=== PATIENT | female | born 1945 | race Caucasian/White ===

== ENCOUNTER → 2017-09-02 | Outpatient (CLI) | payer OTHER ==
[~2017-09-02] VITALS: Ht 154.9 cm; Wt 64.4 kg
[~2017-09-02] MED LIST: ADULT LOW DOSE81 M1 PO; AMARYL4 MG PO; GLUCOPHAGE1000 MG PO; LEVEMIR100 UNIT/2 SC; LIPITOR10 MG PO; LOPRESSOR25 MG PO; PRINZIDE 20-121 EACH PO; PROTONIX40 MG PO
[2017-09-02 11:09] LABS: CHLORIDE 106 MEQ/L (99-109); POTASSIUM 4.5 MEQ/L (3.7-5.4); SODIUM 141 MEQ/L (136-147)
[2017-09-02 11:15] LABS: CREATININE 1.3 MG/DL (0.6-1.3); GFR ESTIMATE (CALCULATED) 43 mL/min/; GLUCOSE 68 mg/dL (70-99); UREA NITROGEN (BUN) 28 mg/dL (9-23)
== END | disposition home or self-care (01) ==
LOC: AMB 10:15
PROVIDERS: Internal Medicine Gastroenterology
PROC: 0DBH8ZX Excision of Cecum, Via Natural or Artificial Opening Endoscopic, Diagnostic (ICD-10-PCS; principal; 2017-09-02)
DX: Z12.11 Encounter for screening for malignant neoplasm of colon (principal); Z86.010 Personal history of colon polyps; D12.0 Benign neoplasm of cecum; E11.65 Type 2 diabetes mellitus with hyperglycemia; Z79.84 Long term (current) use of oral hypoglycemic drugs; Z79.82 Long term (current) use of aspirin; F17.210 Nicotine dependence, cigarettes, uncomplicated
CPT/HCPCS: 80048; 82948; 88305; 93005; J2250; J2405

== ENCOUNTER → 2017-10-01 | Outpatient (CLI) | payer MEDICARE, OTHER | END | disposition home or self-care (01) | LOC: CDC 10:25 | DX: Z01.810 Encounter for preprocedural cardiovascular examination (principal); K51.40 Inflammatory polyps of colon without complications | CPT/HCPCS: 93000 ==

== ENCOUNTER 2017-10-25 21:35 | Inpatient (IN) | payer OTHER ==
[~2017-10-25] VITALS: Ht 154.9 cm; Wt 60.4 kg
[~2017-10-25 21:35] MED LIST changes: +LEVEMIR FL100 UNIT/1 SC; -LEVEMIR100 UNIT/2 SC; -LOPRESSOR25 MG PO; +LOPRESSOR50 MG PO; +LUMIGAN 0.50 DROP/22 BOTH EYES
[2017-10-26 05:54] VITALS: BP 193/75
[2017-10-26 06:13] VITALS: BP 193/75
[2017-10-26 16:26] VITALS: BP 163/70
[2017-10-26 18:46] VITALS: BP 180/71
[2017-10-26 22:41] VITALS: BP 163/71
[2017-10-27 03:57] VITALS: BP 172/79
[2017-10-27 07:36] VITALS: BP 128/60
[2017-10-27 09:26] LABS: BASOPHIL (%) 0.6 % (0-1); BASOPHIL COUNT 0.1 K/uL (0-0.1); EOSINOPHIL (%) 0.6 % (0-5); EOSINOPHIL COUNT 0.1 K/uL (0-0.3); HEMATOCRIT 30.6 % (36.0-46.0); IMMATURE GRANULOCYTE (%) 0.3 % (0.0-0.7); LYMPHOCYTE (%) 19.6 % (15-42); MCHC 32.7 G/DL (30.0-36.0); MCV 94.7 FL (83-99); MONOCYTE COUNT 0.9 K/uL (0-0.8); NEUTROPHIL (%) 69.9 % (45-76); NEUTROPHIL COUNT 7.2 K/uL (1.8-6.4); PLATELET COUNT 216 K/uL (156-360); RBC DIS.WIDTH-CV 13.6 % (11.8-14.6); RBC DIS.WIDTH-SD 46.5 % (39-53); WHITE BLOOD COUNT 10.3 K/uL (4.1-10.2)
[2017-10-27 09:32] LABS: RED BLOOD COUNT 3.23 M/uL (3.80-5.20)
[2017-10-27 09:49] LABS: CHLORIDE 109 MEQ/L (99-109); CREATININE 1.3 MG/DL (0.6-1.3); GFR ESTIMATE (CALCULATED) 43 mL/min/; GLUCOSE 81 mg/dL (70-99); POTASSIUM 3.9 MEQ/L (3.7-5.4); SODIUM 142 MEQ/L (136-147); UREA NITROGEN (BUN) 19 mg/dL (9-23)
[2017-10-27 12:03] VITALS: BP 129/59
[2017-10-27 15:56] VITALS: BP 145/67
[2017-10-28] VITALS (9 sets, daily range): BP systolic 120–182; BP diastolic 58–73
[2017-10-28 06:03] LABS: BASOPHIL (%) 0.5 % (0-1); BASOPHIL COUNT 0.1 K/uL (0-0.1); EOSINOPHIL (%) 0.9 % (0-5); EOSINOPHIL COUNT 0.1 K/uL (0-0.3); HEMATOCRIT 31.1 % (36.0-46.0); HEMOGLOBIN 9.9 G/DL (11.9-15.5); IMMATURE GRANULOCYTE (%) 0.6 % (0.0-0.7); LYMPHOCYTE (%) 12.4 % (15-42); LYMPHOCYTE COUNT 1.2 K/uL (1.0-2.8); MCHC 31.8 G/DL (30.0-36.0); MCV 94.2 FL (83-99); MONOCYTE (%) 8.7 % (3-12); MONOCYTE COUNT 0.9 K/uL (0-0.8); NEUTROPHIL (%) 76.9 % (45-76); NEUTROPHIL COUNT 7.6 K/uL (1.8-6.4); PLATELET COUNT 192 K/uL (156-360); RBC DIS.WIDTH-CV 13.4 % (11.8-14.6); RBC DIS.WIDTH-SD 46.2 % (39-53); WHITE BLOOD COUNT 9.9 K/uL (4.1-10.2)
[2017-10-28 06:27] LABS: CHLORIDE 106 MEQ/L (99-109); CREATININE 1.2 MG/DL (0.6-1.3); GFR ESTIMATE (CALCULATED) 47 mL/min/; POTASSIUM 4.4 MEQ/L (3.7-5.4); SODIUM 140 MEQ/L (136-147); UREA NITROGEN (BUN) 14 mg/dL (9-23)
[2017-10-28 06:28] LABS: GLUCOSE 244 mg/dL (70-99)
[2017-10-28 09:46] LABS: MAGNESIUM 1.4 mg/dl (1.3-2.7); PHOSPHORUS 3.1 mg/dL (2.5-4.9)
[2017-10-28 11:32] LABS: TROP-I INTERPRETATION POSITIVE; TROPONIN-I 2.24 ng/mL (0.0-0.30)
[2017-10-28 15:34] LABS: TROP-I INTERPRETATION POSITIVE; TROPONIN-I 1.77 ng/mL (0.0-0.30)
[2017-10-28 22:30] LABS: TROP-I INTERPRETATION POSITIVE; TROPONIN-I 1.27 ng/mL (0.0-0.30)
[2017-10-29 03:56] VITALS: BP 156/65
[2017-10-29 06:35] LABS: BASOPHIL (%) 0.8 % (0-1); BASOPHIL COUNT 0.1 K/uL (0-0.1); EOSINOPHIL COUNT 0.5 K/uL (0-0.3); HEMATOCRIT 30.8 % (36.0-46.0); IMMATURE GRANULOCYTE (%) 0.6 % (0.0-0.7); LYMPHOCYTE COUNT 1.7 K/uL (1.0-2.8); MCH 30.9 PG (29.0-34.0); MCHC 32.5 G/DL (30.0-36.0); MCV 95.1 FL (83-99); MONOCYTE (%) 7.9 % (3-12); MONOCYTE COUNT 0.6 K/uL (0-0.8); NEUTROPHIL (%) 62.7 % (45-76); NEUTROPHIL COUNT 4.9 K/uL (1.8-6.4); PLATELET COUNT 186 K/uL (156-360); RBC DIS.WIDTH-CV 13.4 % (11.8-14.6); RBC DIS.WIDTH-SD 46.7 % (39-53); RED BLOOD COUNT 3.24 M/uL (3.80-5.20); WHITE BLOOD COUNT 7.8 K/uL (4.1-10.2)
[2017-10-29 06:50] VITALS: BP 164/71
[2017-10-29 07:03] LABS: CHLORIDE 105 MEQ/L (99-109); CREATININE 1.1 MG/DL (0.6-1.3); GFR ESTIMATE (CALCULATED) 52 mL/min/; GLUCOSE 181 mg/dL (70-99); SODIUM 139 MEQ/L (136-147); UREA NITROGEN (BUN) 11 mg/dL (9-23)
[2017-10-29 11:18] VITALS: BP 117/70
[2017-10-29 16:25] VITALS: BP 188/79
[2017-10-29 19:12] VITALS: BP 141/67
[2017-10-29 22:32] VITALS: BP 161/71
[2017-10-30] VITALS (7 sets, daily range): BP systolic 126–192; BP diastolic 64–79
[2017-10-30 07:18] LABS: BASOPHIL (%) 0.8 % (0-1); BASOPHIL COUNT 0.1 K/uL (0-0.1); EOSINOPHIL (%) 5.5 % (0-5); EOSINOPHIL COUNT 0.5 K/uL (0-0.3); HEMATOCRIT 31.4 % (36.0-46.0); HEMOGLOBIN 10.3 G/DL (11.9-15.5); IMMATURE GRANULOCYTE (%) 0.8 % (0.0-0.7); LYMPHOCYTE COUNT 1.8 K/uL (1.0-2.8); MCH 30.7 PG (29.0-34.0); MCHC 32.8 G/DL (30.0-36.0); MCV 93.5 FL (83-99); MONOCYTE (%) 8.5 % (3-12); MONOCYTE COUNT 0.8 K/uL (0-0.8); NEUTROPHIL (%) 64.4 % (45-76); NEUTROPHIL COUNT 5.9 K/uL (1.8-6.4); PLATELET COUNT 212 K/uL (156-360); RBC DIS.WIDTH-CV 13.1 % (11.8-14.6); RBC DIS.WIDTH-SD 45.1 % (39-53); RED BLOOD COUNT 3.36 M/uL (3.80-5.20); WHITE BLOOD COUNT 9.2 K/uL (4.1-10.2)
[2017-10-30 07:35] LABS: CHLORIDE 106 MEQ/L (99-109); CREATININE 1.1 MG/DL (0.6-1.3); GFR ESTIMATE (CALCULATED) 52 mL/min/; GLUCOSE 146 mg/dL (70-99); POTASSIUM 4.5 MEQ/L (3.7-5.4); SODIUM 142 MEQ/L (136-147); UREA NITROGEN (BUN) 10 mg/dL (9-23)
[2017-10-31] VITALS (9 sets, daily range): BP systolic 164–203; BP diastolic 68–87
[2017-11-01 00:23] VITALS: BP 174/74
[2017-11-01 04:00] VITALS: BP 162/72
[2017-11-01 06:49] LABS: HEMATOCRIT 29.8 % (36.0-46.0); HEMOGLOBIN 9.7 G/DL (11.9-15.5); MCH 30.3 PG (29.0-34.0); MCHC 32.6 G/DL (30.0-36.0); MCV 93.1 FL (83-99); PLATELET COUNT 236 K/uL (156-360); RBC DIS.WIDTH-CV 13.2 % (11.8-14.6); RBC DIS.WIDTH-SD 44.9 % (39-53); WHITE BLOOD COUNT 10.4 K/uL (4.1-10.2)
[2017-11-01 07:05] VITALS: BP 136/74
[2017-11-01 07:14] LABS: CHLORIDE 107 MEQ/L (99-109); CREATININE 1.2 MG/DL (0.6-1.3); GFR ESTIMATE (CALCULATED) 47 mL/min/; GLUCOSE 120 mg/dL (70-99); POTASSIUM 4.4 MEQ/L (3.7-5.4); SODIUM 142 MEQ/L (136-147)
[2017-11-01 07:20] LABS: UREA NITROGEN (BUN) 24 mg/dL (9-23)
[2017-11-01 11:16] VITALS: BP 124/59
[2017-11-01 20:05] VITALS: BP 132/60
[2017-11-01 23:00] VITALS: BP 139/66
[2017-11-02 04:40] VITALS: BP 156/65
[2017-11-02 07:19] VITALS: BP 159/72
[2017-11-02 09:45] LABS: BASOPHIL (%) 0.8 % (0-1); BASOPHIL COUNT 0.1 K/uL (0-0.1); EOSINOPHIL COUNT 0.2 K/uL (0-0.3); HEMATOCRIT 25.3 % (36.0-46.0); HEMOGLOBIN 8.2 G/DL (11.9-15.5); IMMATURE GRANULOCYTE (%) 1.1 % (0.0-0.7); LYMPHOCYTE COUNT 1.2 K/uL (1.0-2.8); MCH 30.6 PG (29.0-34.0); MCHC 32.4 G/DL (30.0-36.0); MCV 94.4 FL (83-99); MONOCYTE (%) 8.1 % (3-12); MONOCYTE COUNT 0.8 K/uL (0-0.8); NEUTROPHIL COUNT 7.6 K/uL (1.8-6.4); NRBC (%) 1.1 /100 WBC (0-0); PLATELET COUNT 223 K/uL (156-360); RBC DIS.WIDTH-CV 13.6 % (11.8-14.6); RED BLOOD COUNT 2.68 M/uL (3.80-5.20); WHITE BLOOD COUNT 10.1 K/uL (4.1-10.2)
[2017-11-02 10:20] LABS: CHLORIDE 108 MEQ/L (99-109); CREATININE 1.3 MG/DL (0.6-1.3); GFR ESTIMATE (CALCULATED) 43 mL/min/; POTASSIUM 4.8 MEQ/L (3.7-5.4); SODIUM 140 MEQ/L (136-147); UREA NITROGEN (BUN) 29 mg/dL (9-23)
[2017-11-02 10:21] LABS: GLUCOSE 339 mg/dL (70-99)
[2017-11-02 12:17] VITALS: BP 145/68
[2017-11-02 14:08] LABS: HEMOGLOBIN 7.8 G/DL (11.9-15.5); MCV 94.1 FL (83-99)
[2017-11-02 15:50] VITALS: BP 130/65
[2017-11-02 19:38] VITALS: BP 144/70
[2017-11-02 21:05] LABS: HEMATOCRIT 23.2 % (36.0-46.0); HEMOGLOBIN 7.5 G/DL (11.9-15.5); MCV 94.7 FL (83-99)
[2017-11-02 23:11] VITALS: BP 147/63
[2017-11-03] VITALS (9 sets, daily range): BP systolic 149–160; BP diastolic 63–71
[2017-11-03 02:13] LABS: HEMATOCRIT 23.1 % (36.0-46.0); HEMOGLOBIN 7.7 G/DL (11.9-15.5); MCV 93.5 FL (83-99)
[2017-11-03 02:20] LABS: CHLORIDE 109 mEq/L (99-109); POTASSIUM 4.5 mEq/L (3.7-5.4); SODIUM 140 mEq/L (136-147)
[2017-11-03 02:26] LABS: CREATININE 1.7 mg/dL (0.6-1.3); GFR ESTIMATE (CALCULATED) 32 mL/min/; GLUCOSE 112 mg/dL (70-99)
[2017-11-03 02:27] LABS: UREA NITROGEN (BUN) 39 mg/dL (9-23)
[2017-11-03 07:46] LABS: BASOPHIL (%) 0.8 % (0-1); BASOPHIL COUNT 0.1 K/uL (0-0.1); EOSINOPHIL (%) 4.1 % (0-5); EOSINOPHIL COUNT 0.5 K/uL (0-0.3); HEMOGLOBIN 7.7 G/DL (11.9-15.5); IMMATURE GRANULOCYTE (%) 1.5 % (0.0-0.7); LYMPHOCYTE (%) 18.7 % (15-42); LYMPHOCYTE COUNT 2.1 K/uL (1.0-2.8); MCH 30.2 PG (29.0-34.0); MCHC 32.1 G/DL (30.0-36.0); MCV 94.1 FL (83-99); MONOCYTE (%) 9.8 % (3-12); MONOCYTE COUNT 1.1 K/uL (0-0.8); NEUTROPHIL (%) 65.1 % (45-76); NEUTROPHIL COUNT 7.2 K/uL (1.8-6.4); PLATELET COUNT 240 K/uL (156-360); RBC DIS.WIDTH-CV 13.7 % (11.8-14.6); RBC DIS.WIDTH-SD 46.5 % (39-53); RED BLOOD COUNT 2.55 M/uL (3.80-5.20)
[2017-11-03 17:47] LABS: BASOPHIL (%) 1.1 % (0-1); BASOPHIL COUNT 0.1 K/uL (0-0.1); EOSINOPHIL (%) 3.2 % (0-5); EOSINOPHIL COUNT 0.4 K/uL (0-0.3); HEMATOCRIT 29.3 % (36.0-46.0); IMMATURE GRANULOCYTE (%) 1.4 % (0.0-0.7); LYMPHOCYTE (%) 20.1 % (15-42); LYMPHOCYTE COUNT 2.5 K/uL (1.0-2.8); MCH 30.7 PG (29.0-34.0); MCHC 33.4 G/DL (30.0-36.0); MCV 91.8 FL (83-99); MONOCYTE (%) 10.9 % (3-12); MONOCYTE COUNT 1.4 K/uL (0-0.8); NEUTROPHIL (%) 63.3 % (45-76); NEUTROPHIL COUNT 7.8 K/uL (1.8-6.4); PLATELET COUNT 244 K/uL (156-360); RBC DIS.WIDTH-CV 14.8 % (11.8-14.6); RBC DIS.WIDTH-SD 49.3 % (39-53); WHITE BLOOD COUNT 12.4 K/uL (4.1-10.2)
[2017-11-03 17:57] LABS: HEMOGLOBIN 9.8 G/DL (11.9-15.5); RED BLOOD COUNT 3.19 M/uL (3.80-5.20)
[2017-11-04 03:56] VITALS: BP 162/70
[2017-11-04 05:11] LABS: BASOPHIL (%) 0.8 % (0-1); BASOPHIL COUNT 0.1 K/uL (0-0.1); EOSINOPHIL (%) 4.2 % (0-5); EOSINOPHIL COUNT 0.5 K/uL (0-0.3); HEMATOCRIT 28.5 % (36.0-46.0); HEMOGLOBIN 9.5 G/DL (11.9-15.5); IMMATURE GRANULOCYTE (%) 1.7 % (0.0-0.7); LYMPHOCYTE (%) 16.6 % (15-42); MCH 30.4 PG (29.0-34.0); MCHC 33.3 G/DL (30.0-36.0); MCV 91.1 FL (83-99); MONOCYTE (%) 10.1 % (3-12); MONOCYTE COUNT 1.2 K/uL (0-0.8); NEUTROPHIL (%) 66.6 % (45-76); PLATELET COUNT 226 K/uL (156-360); RBC DIS.WIDTH-CV 15.3 % (11.8-14.6); RBC DIS.WIDTH-SD 49.9 % (39-53); RED BLOOD COUNT 3.13 M/uL (3.80-5.20); WHITE BLOOD COUNT 12.1 K/uL (4.1-10.2)
[2017-11-04 05:16] LABS: CHLORIDE 110 mEq/L (99-109); POTASSIUM 4.3 mEq/L (3.7-5.4); SODIUM 144 mEq/L (136-147)
[2017-11-04 05:21] LABS: GLUCOSE 58 mg/dL (70-99)
[2017-11-04 05:22] LABS: CREATININE 1.4 mg/dL (0.6-1.3); GFR ESTIMATE (CALCULATED) 40 mL/min/
[2017-11-04 05:23] LABS: UREA NITROGEN (BUN) 37 mg/dL (9-23)
[2017-11-04 07:06] VITALS: BP 153/68
[2017-11-04] MEDS ORDERED: CLOPIDOGREL75 MG PO (10:32)
[2017-11-04 11:12] VITALS: BP 153/67
[2017-11-04 14:14] VITALS: BP 136/65
[2017-11-04 20:00] VITALS: BP 137/71
[2017-11-04 23:55] VITALS: BP 153/67
[2017-11-05 04:00] VITALS: BP 150/67
[2017-11-05 06:34] LABS: BASOPHIL COUNT 0.1 K/uL (0-0.1); EOSINOPHIL (%) 5.2 % (0-5); EOSINOPHIL COUNT 0.5 K/uL (0-0.3); HEMATOCRIT 27.3 % (36.0-46.0); IMMATURE GRANULOCYTE (%) 1.5 % (0.0-0.7); LYMPHOCYTE (%) 21.2 % (15-42); LYMPHOCYTE COUNT 2.2 K/uL (1.0-2.8); MCH 30.2 PG (29.0-34.0); MCV 91.6 FL (83-99); MONOCYTE (%) 11.6 % (3-12); MONOCYTE COUNT 1.2 K/uL (0-0.8); NEUTROPHIL (%) 59.5 % (45-76); NEUTROPHIL COUNT 6.1 K/uL (1.8-6.4); PLATELET COUNT 239 K/uL (156-360); RBC DIS.WIDTH-CV 15.4 % (11.8-14.6); RBC DIS.WIDTH-SD 50.2 % (39-53); RED BLOOD COUNT 2.98 M/uL (3.80-5.20); WHITE BLOOD COUNT 10.3 K/uL (4.1-10.2)
[2017-11-05 07:29] LABS: CHLORIDE 112 MEQ/L (99-109); CREATININE 1.3 MG/DL (0.6-1.3); GFR ESTIMATE (CALCULATED) 43 mL/min/; POTASSIUM 4.4 MEQ/L (3.7-5.4); SODIUM 144 MEQ/L (136-147); UREA NITROGEN (BUN) 34 mg/dL (9-23)
[2017-11-05 07:32] VITALS: BP 143/64
[2017-11-05 07:41] LABS: GLUCOSE 52 mg/dL (70-99)
[2017-11-05] MEDS ORDERED: ASPIR-LOW81 MG PO (09:54)
[2017-11-05 11:03] VITALS: BP 136/65
== END 2017-11-05 13:01 | disposition home or self-care (01) | DRG 329 ==
LOC: 2SOUTH → ENRESERV 21:35 → 2SOUTH 10-26 05:35 → 5EAST 10-26 05:35 → 2SOUTH 10-26 09:41 → ENRESERV 10-26 12:37 → 5EAST 10-26 14:25 → 2SOUTH 10-26 14:28 → ENRESERV 11-01 12:46 → 5EAST 11-01 15:48 → ENRESERV 11-01 16:54 → 4EAST 11-01 19:58
PROVIDERS: Internal Medicine; Internal Medicine Cardiovascular Disease; Physician Assistant; Physician Assistant Medical; Surgery
PROC: 0DTF4ZZ Resection of Right Large Intestine, Percutaneous Endoscopic Approach (ICD-10-PCS; principal; 2017-10-26)
PROC: 4A023N7 Measurement of Cardiac Sampling and Pressure, Left Heart, Percutaneous Approach (ICD-10-PCS; 2017-11-01)
PROC: 027034Z Dilation of Coronary Artery, One Artery with Drug-eluting Intraluminal Device, Percutaneous Approach (ICD-10-PCS; 2017-11-01)
PROC: B2111ZZ Fluoroscopy of Multiple Coronary Arteries using Low Osmolar Contrast (ICD-10-PCS; 2017-11-01)
PROC: 30233N1 Transfusion of Nonautologous Red Blood Cells into Peripheral Vein, Percutaneous Approach (ICD-10-PCS; 2017-11-03)
DX: D12.0 Benign neoplasm of cecum (principal); I97.191 Other postprocedural cardiac functional disturbances following other surgery; I21.4 Non-ST elevation (NSTEMI) myocardial infarction; I48.0 Paroxysmal atrial fibrillation; K92.1 Melena; E11.65 Type 2 diabetes mellitus with hyperglycemia; E86.9 Volume depletion, unspecified; N28.9 Disorder of kidney and ureter, unspecified; R71.0 Precipitous drop in hematocrit; I10 Essential (primary) hypertension; K21.9 Gastro-esophageal reflux disease without esophagitis; I25.10 Atherosclerotic heart disease of native coronary artery without angina pectoris; E78.5 Hyperlipidemia, unspecified; E66.9 Obesity, unspecified; F17.210 Nicotine dependence, cigarettes, uncomplicated; Z87.11 Personal history of peptic ulcer disease; Z79.82 Long term (current) use of aspirin; Z79.4 Long term (current) use of insulin; Z68.26 Body mass index [BMI] 26.0-26.9, adult
CPT/HCPCS: 71275; 80048; 82948; 83735; 84100; 84484; 85014; 85018; 85025; 85025 91; 85027; 85347; 85730; 86850; 86900; 86901; 86920; 88307; 93005; 93306; 94799; C1725; C1769; C1874; C1887; J0583; J1100; J1170; J1644; J1650; J1815; J1885; J2001; J2250; J2405; J2710; J2795; J7030; J7120; J7643; P9016; S0020; S0074